=== PATIENT | female | born 1975 | race Caucasian/White ===

== ENCOUNTER → 2023-11-07 07:50 | Outpatient (REF) | payer BC, SELFPAY | LOC: WDC 07:50 | PROVIDERS: ATTENDING PHYSICIAN Registered Nurse; FAMILY PHYSICIAN Family Medicine | DX: Z12.31 Encounter for screening mammogram for malignant neoplasm of breast (principal) | CPT/HCPCS: 77063; 77067 ==

== ENCOUNTER → 2023-11-15 09:02 | Outpatient (REF) | payer BC, SELFPAY | LOC: WDC 09:02 | PROVIDERS: ATTENDING PHYSICIAN Registered Nurse; FAMILY PHYSICIAN Family Medicine | DX: R92.8 Other abnormal and inconclusive findings on diagnostic imaging of breast (principal) | CPT/HCPCS: 77065 ==

== ENCOUNTER → 2024-05-18 13:13 | Outpatient (REF) | payer BC, SELFPAY | LOC: WDC 13:13 | PROVIDERS: ATTENDING PHYSICIAN Obstetrics & Gynecology; FAMILY PHYSICIAN Family Medicine | DX: R92.8 Other abnormal and inconclusive findings on diagnostic imaging of breast (principal) | CPT/HCPCS: 77061; 77065 ==

== ENCOUNTER → 2024-10-22 09:26 | Outpatient (REF) | payer BC, SELFPAY | LOC: HWRAD 09:26 | PROVIDERS: ATTENDING PHYSICIAN Internal Medicine Endocrinology, Diabetes & Metabolism; FAMILY PHYSICIAN Family Medicine | DX: E03.9 Hypothyroidism, unspecified (principal); R22.2 Localized swelling, mass and lump, trunk | CPT/HCPCS: 76536 ==

== ENCOUNTER → 2024-11-12 07:42 | Outpatient (REF) | payer BC, SELFPAY | LOC: WDC 07:42 | PROVIDERS: ATTENDING PHYSICIAN Obstetrics & Gynecology; FAMILY PHYSICIAN Family Medicine | DX: Z12.31 Encounter for screening mammogram for malignant neoplasm of breast (principal) | CPT/HCPCS: 77063; 77067 ==

== ENCOUNTER → 2024-11-25 08:43 | Outpatient (REF) | payer BC, SELFPAY | LOC: WDC 08:43 | PROVIDERS: ATTENDING PHYSICIAN Obstetrics & Gynecology; FAMILY PHYSICIAN Family Medicine | DX: R92.8 Other abnormal and inconclusive findings on diagnostic imaging of breast (principal) | CPT/HCPCS: 76642 ==